=== PATIENT | male | born 1985 | race Caucasian/White ===

== ENCOUNTER 2022-12-03 19:45 | Observation (INO) | payer BC ==
[~2022-12-03] VITALS: Ht 185.4 cm; Wt 87.5 kg
[2022-12-03 21:04] LABS: BASO # 0.1 K/mm3 (0.0-0.2); BASO % 0.9 % (0.0-2.0); EOS # 0.2 K/mm3 (0.0-0.7); EOS % 1.9 % (0.0-4.0); GRAN # 8.7 K/mm3 (1.4-6.5); GRAN % 77.1 % (42.2-75.2); HEMATOCRIT 48.4 % (42.0-52.0); HEMOGLOBIN 15.7 g/dl (13.5-18.0); LYMPH # 1.5 K/mm3 (1.2-3.4); LYMPH % 13.1 % (20.0-51.0); MEAN CELL VOLUME 88 fl (80.0-100.0); MEAN CORPUSCULAR HEMOGLOBIN 28 pg (27-31); MEAN CORPUSCULAR HGB CONC 32 g/dl (33.0-37.0); MEAN PLATELET VOLUME 10.6 fl (7.4-10.4); MONO # 0.7 K/mm3 (0.1-0.6); MONO % 6.6 % (1.7-9.3); PLATELET COUNT 265 K/mm3 (130-400); RED BLOOD COUNT 5.53 M/mm3 (4.20-5.60)
[2022-12-03 21:20] LABS: ALBUMIN 4.3 gm/dL (3.5-5.0); BILIRUBIN,TOTAL 0.4 mg/dL (0.2-1.2); CALCIUM 9.6 mg/dL (8.4-10.2); CREATININE, serum 1.16 mg/dL (0.72-1.25); POTASSIUM 4.2 mmol/L (3.5-4.5); TOTAL PROTEIN 7.2 gm/dL (6.2-8.1)
[2022-12-03 21:38] LABS: COLLECTION METHOD CLEAN CATCH
[2022-12-03 21:44] LABS: AMORPHOUS CRYSTAL Present (NOT PRESENT); MUCOUS Present (NOT PRESENT); SQUAMOUS EPITHELIAL None Seen /hpf (0-10); URINE APPEARANCE Cloudy (CLEAR/HAZY); URINE BACTERIA None Seen /hpf (NONE SEEN); URINE COLOR Yellow (YELLOW); URINE RBC 20-50 /hpf (0-2)
[2022-12-03 21:45] LABS: URINE BLOOD 2+ (NEGATIVE); URINE GLUCOSE Negative (NEGATIVE); URINE KETONE 3+ (NEGATIVE); URINE NITRATE Negative (NEGATIVE); URINE PROTEIN(semi-quant) 1+ (NEGATIVE); URINE UROBILINOGEN 0.2 (NEGATIVE)
[2022-12-04] VITALS (11 sets, daily range): BP systolic 121–136; BP diastolic 56–70; PULSE 71–96; TEMP 97.8–98.2
[2022-12-04] MEDS ORDERED: PROAIR HFA0.09 MG/AC IH (03:03)
[2022-12-04] MEDS ORDERED: QVAR REDIHALE10.6 G1 IH (03:05)
--- NOTE | 2022-12-04 03:30 | NUR ---
Patient arrived to the floor at 0245 from PACU with PACU nurse Cielo, IV infusing well on left AC, NS running via gravity, with 3 lap sites, skin glued, edges well approximated, reports pain isn't terrible, denies the need for pain meds at this time, plan of care discussed for this shift including pain/pain meds, concerns/questions, VSS, with grace murray, denies further need at this time, will continue to monitor.
[2022-12-04] MEDS ORDERED: NORCO 325 MG-51 TAB PO (09:42)
--- NOTE | 2022-12-04 11:42 | NUR ---
Aluminum Pourer rounds: Aluminum Pourer visit attempted. Doctor was with Patient.
--- NOTE | 2022-12-04 12:16 | NUR ---
Patient resting in bed. rounded, plan of care reviewed. IV to Int. tolerating clears, ordering regular lunch. Lap site x3, bandaids intact. Will monitor
--- NOTE | 2022-12-04 12:54 | NUR ---
Patient resting in bed. Tolerated lunch. [place] for abdominal pain/discomfort. 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 Will monitor
--- NOTE | 2022-12-04 15:54 | NUR ---
Patient ride here to take him to his house until flight home tmrw. 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 We reviewed all discharge education. We discussed incisons cares, activity restrictions, diet & medications. Int Dc. Patient aware of needing to follow up with [facility] in [place] and call with any questions or concerns.
--- NOTE | 2022-12-04 16:28 | NUR ---
SW met with patient bedside to conduct a care management assessment and discharge planning. 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. Patient informed SW that he has PCP and pharmacy established back in [place]. Patient reports that he is independent with ADL's and currently does not use any DME's. Patient is excepting to discharge home pending further medical recommendations. No further needs at this time.
== END 2022-12-04 16:14 | disposition home or self-care (01) ==
LOC: COL.ER 19:45 → SURG 22:27
PROVIDERS: Emergency Medicine; ADMIT Surgery
DX: K40.30 Unilateral inguinal hernia, with obstruction, without gangrene, not specified as recurrent (principal)
CPT/HCPCS: C1781; G0378; J0690; J1100; J1885; J2250; J2270; J2405; J2704; J3010; J7030; Q9967